=== PATIENT | female | born 1980 | race Two or more races ===

== ENCOUNTER 2018-03-13 01:30 | Emergency (ER) | payer OTHER ==
[2018-03-13 02:32] LABS: URINE SOURCE CLEAN C
[2018-03-13 02:34] LABS: URINE BILIRUBIN NEGATIVE (NEGATIVE); URINE BLOOD SMALL (NEGATIVE); URINE GLUCOSE (UA) NEGATIVE (NEGATIVE); URINE KETONE NEGATIVE (NEGATIVE); URINE LEUKOCYTE ESTERASE NEGATIVE (NEGATIVE); URINE MICROSCOPIC INDICATED? YES; URINE NITRATE NEGATIVE (NEGATIVE); URINE PH 5.5 (4.6 - 8.0); URINE PROTEIN NEGATIVE (NEGATIVE); URINE UROBILINOGEN 0.2 E.U./dL (0.2 - 1.0)
[2018-03-13 02:48] LABS: URINE CLARITY HAZY (CLEAR); URINE COLOR YELLOW
[2018-03-13 02:49] LABS: URINE BACTERIA OCCASIONAL /hpf (NONE SEEN); URINE EPITHELIAL CELLS FEW /lpf (FEW); URINE RBC NONE SEEN /hpf (0-5)
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
== END 2018-03-13 05:15 | disposition home or self-care (01) ==
LOC: ER 01:30
DX: S40.022A Contusion of left upper arm, initial encounter (principal); M54.5 Low back pain; M54.6 Pain in thoracic spine; M54.2 Cervicalgia; V49.9XXA Car occupant (driver) (passenger) injured in unspecified traffic accident, initial encounter; Y93.89 Activity, other specified; Y92.410 Unspecified street and highway as the place of occurrence of the external cause; Y99.8 Other external cause status
CPT/HCPCS: 72050-TC; 72072-TC; 72125-TC; 72131-TC; 73030-TC-LT; 73060-TC-LT; 81001-TC; 81025-TC